=== PATIENT | female | born 1970 | race African-American/Black ===

== ENCOUNTER 2017-08-28 20:27 | Inpatient (IN) | payer BC ==
[2017-08-29] MEDS: HYDROmorphONE 0.5 MG/0.5 ML SYG IV (02:16)
[2017-08-29] MEDS: ONDANSETRON 4 MG INJ IV (02:16)
[2017-08-29 02:19] LABS: ADD MAN DIFF? NO
[2017-08-29 02:21] LABS: ABNORMAL IP MESSAGE 1; BASOPHIL # 0.1 10^3/ul (0.0-0.1); BASOPHILS % 0.5 % (0.0-2.0); EOSINOPHILS # 0.3 10^3/ul (0.0-0.5); EOSINOPHILS % 2.5 % (0.0-7.0); HEMATOCRIT 34.1 % (37.0-47.0); HEMOGLOBIN 10.2 g/dl (12.0-16.0); LYMPHOCYTES # 2.7 10^3/ul (0.8-2.9); LYMPHOCYTES % 27.3 % (15.0-51.0); MEAN CORPUSCULAR HEMOGLOBIN 22.1 pg (29.0-33.0); MEAN CORPUSCULAR HGB CONC 29.9 g/dl (32.0-37.0); MEAN CORPUSCULAR VOLUME 73.8 fl (82.0-101.0); MEAN PLATELET VOLUME 11.1 fl (7.4-10.4); MONOCYTE # 0.8 10^3/ul (0.3-0.9); MONOCYTES % 8.4 % (0.0-11.0); NEUTROPHILS % 60.9 % (39.0-77.0); PLATELET COUNT 373 10^3/UL (140-415); RED BLOOD COUNT 4.62 10^6/ul (4.20-5.40); RED CELL DISTRIBUTION WIDTH 25.7 % (11.5-14.5)
[2017-08-29 02:21] LABS: WHITE BLOOD COUNT 9.8 10^3/ul (4.8-10.8)
[2017-08-29 02:28] LABS: POSITIVE DIFF @See below
[2017-08-29 02:41] LABS: INR 0.94; PROTIME 12.7 Sec (11.9-14.9)
[2017-08-29 02:42] LABS: PARTIAL THROMBOPLASTIN TIME 31.2 Sec (25.0-35.0)
[2017-08-29 02:46] LABS: ALANINE AMINOTRANSFERASE 32 IU/L (13-69); ALBUMIN 4.1 g/dl (3.3-4.9); ALBUMIN/GLOBULIN RATIO 1.05; ALKALINE PHOSPHATASE 111 IU/L (42-121); ANION GAP 16 (8-16); ASPARTATE AMINO TRANSFERASE 29 IU/L (15-46); BILIRUBIN,INDIRECT 0.1 mg/dl (0-1.1); BILIRUBIN,TOTAL 0.1 mg/dl (0.2-1.3); BLOOD UREA NITROGEN 15 mg/dl (7-20); C-REACTIVE PROTEIN 1.3 mg/dl (0.0-0.9); CALCIUM 9.4 mg/dl (8.4-10.2); CARBON DIOXIDE 26 mmol/L (21-31); CHLORIDE 109 mmol/L (97-110); CREATININE 0.96 mg/dl (0.44-1.00); GLUCOSE 90 mg/dl (70-220); POTASSIUM 4.2 mmol/L (3.5-5.1); SODIUM 147 mmol/L (135-144)
[2017-08-29 03:22] LABS: URINE BLOOD (Dip) POC Trace-lysed (NEGATIVE); URINE GLUCOSE (Dip) POC Negative (NEGATIVE); URINE KETONES (Dip) POC Negative (NEGATIVE); URINE LEUKOCYTE EST (Dip) POC Negative (NEGATIVE); URINE NITRITE (Dip) POC Negative (NEGATIVE); URINE TOTAL PROTEIN POC Negative (NEGATIVE)
[2017-08-29 03:22] LABS: URINE PH (Dip) POC 5.5 (5.0-8.5)
[2017-08-29 03:55] LABS: ERYTHROCYTE SEDIMENTATION RATE 18 mm/Hr (0-20)
[2017-08-29] MEDS ORDERED: ACETAMINOPHEN 325 MG TAB PO (05:00)
[2017-08-29] MEDS ORDERED: ONDANSETRON 4 MG INJ IV (05:00)
[2017-08-29] MEDS: LISINOPRIL 20 MG TAB PO (09:08)
[2017-08-29] MEDS: FERROUS SULFATE (EC) 325 MG TAB PO ×2 (09:08→20:26)
[2017-08-29] MEDS: DOCUSATE SODIUM 100 MG CAP PO (09:08)
[2017-08-29] MEDS: morphine 2 MG INJ IV (23:19)
[2017-08-30] MEDS: DOCUSATE SODIUM 100 MG CAP PO (09:00)
[2017-08-30] MEDS: FERROUS SULFATE (EC) 325 MG TAB PO ×2 (09:00→20:43)
[2017-08-30] MEDS: LISINOPRIL 20 MG TAB PO ×2 (09:00→20:43)
[2017-08-30] MEDS ORDERED: LIDOCAINE 1% (MDV) 20 ML INJ (15:36)
[2017-08-30] MEDS: SOD CHLORIDE 0.9% 1,000 ML IV (18:49)
[2017-08-31] MEDS: DOCUSATE SODIUM 100 MG CAP PO (08:38)
[2017-08-31] MEDS: LISINOPRIL 20 MG TAB PO (08:38)
[2017-08-31] MEDS: FERROUS SULFATE (EC) 325 MG TAB PO ×2 (08:38→20:51)
[2017-08-31] MEDS: SOD CHLORIDE 0.9% 1,000 ML IV (14:30)
[2017-09-01] MEDS: morphine 2 MG INJ IV ×2 (00:36→20:42)
[2017-09-01 05:41] LABS: ADD MAN DIFF? NO
[2017-09-01 05:51] LABS: WHITE BLOOD COUNT 7.3 10^3/ul (4.8-10.8)
[2017-09-01 05:51] LABS: ABNORMAL IP MESSAGE 1; BASOPHIL # 0.1 10^3/ul (0.0-0.1); BASOPHILS % 0.7 % (0.0-2.0); EOSINOPHILS # 0.3 10^3/ul (0.0-0.5); EOSINOPHILS % 3.9 % (0.0-7.0); HEMATOCRIT 35.2 % (37.0-47.0); HEMOGLOBIN 10.5 g/dl (12.0-16.0); LYMPHOCYTES # 2.5 10^3/ul (0.8-2.9); LYMPHOCYTES % 34.8 % (15.0-51.0); MEAN CORPUSCULAR HEMOGLOBIN 21.9 pg (29.0-33.0); MEAN CORPUSCULAR HGB CONC 29.8 g/dl (32.0-37.0); MEAN CORPUSCULAR VOLUME 73.3 fl (82.0-101.0); MONOCYTE # 0.6 10^3/ul (0.3-0.9); MONOCYTES % 8.1 % (0.0-11.0); NEUTROPHIL # 3.8 10^3/ul (1.6-7.5); NEUTROPHILS % 52.2 % (39.0-77.0); PLATELET COUNT 333 10^3/UL (140-415); RED CELL DISTRIBUTION WIDTH 25.1 % (11.5-14.5)
[2017-09-01 06:07] LABS: POSITIVE DIFF @See below
[2017-09-01 06:14] LABS: ANION GAP 16 (8-16); BLOOD UREA NITROGEN 11 mg/dl (7-20); CALCIUM 9.1 mg/dl (8.4-10.2); CARBON DIOXIDE 27 mmol/L (21-31); CHLORIDE 108 mmol/L (97-110); CREATININE 0.71 mg/dl (0.44-1.00); GLUCOSE 96 mg/dl (70-220); POTASSIUM 4.2 mmol/L (3.5-5.1); SODIUM 147 mmol/L (135-144)
[2017-09-01] MEDS: DOCUSATE SODIUM 100 MG CAP PO (09:18)
[2017-09-01] MEDS: LISINOPRIL 20 MG TAB PO (09:18)
[2017-09-01] MEDS: FERROUS SULFATE (EC) 325 MG TAB PO ×2 (09:18→20:16)
[2017-09-01] MEDS: SOD CHLORIDE 0.9% 1,000 ML IV (12:49)
[2017-09-02 06:04] LABS: ANION GAP 12 (8-16); BLOOD UREA NITROGEN 12 mg/dl (7-20); CALCIUM 8.9 mg/dl (8.4-10.2); CARBON DIOXIDE 29 mmol/L (21-31); CHLORIDE 107 mmol/L (97-110); CREATININE 0.71 mg/dl (0.44-1.00); GLUCOSE 90 mg/dl (70-220); POTASSIUM 4.1 mmol/L (3.5-5.1); SODIUM 144 mmol/L (135-144)
[2017-09-02] MEDS: FERROUS SULFATE (EC) 325 MG TAB PO ×2 (08:35→21:08)
[2017-09-02] MEDS: LISINOPRIL 20 MG TAB PO (08:36)
[2017-09-02] MEDS: DOCUSATE SODIUM 100 MG CAP PO (08:36)
[2017-09-02] MEDS: SOD CHLORIDE 0.9% 1,000 ML IV (10:43)
[2017-09-03] MEDS: SOD CHLORIDE 0.9% 1,000 ML IV ×2 (03:30→11:03)
[2017-09-03 06:01] LABS: ADD MAN DIFF? NO
[2017-09-03 06:09] LABS: WHITE BLOOD COUNT 8.3 10^3/ul (4.8-10.8)
[2017-09-03 06:09] LABS: ABNORMAL IP MESSAGE 1; BASOPHIL # 0.1 10^3/ul (0.0-0.1); BASOPHILS % 0.8 % (0.0-2.0); EOSINOPHILS # 0.4 10^3/ul (0.0-0.5); EOSINOPHILS % 4.2 % (0.0-7.0); HEMATOCRIT 34.9 % (37.0-47.0); HEMOGLOBIN 10.5 g/dl (12.0-16.0); LYMPHOCYTES # 2.5 10^3/ul (0.8-2.9); LYMPHOCYTES % 30.5 % (15.0-51.0); MEAN CORPUSCULAR HEMOGLOBIN 22.3 pg (29.0-33.0); MEAN CORPUSCULAR HGB CONC 30.1 g/dl (32.0-37.0); MEAN CORPUSCULAR VOLUME 74.3 fl (82.0-101.0); MEAN PLATELET VOLUME 11.1 fl (7.4-10.4); MONOCYTE # 0.6 10^3/ul (0.3-0.9); MONOCYTES % 7.3 % (0.0-11.0); NEUTROPHIL # 4.7 10^3/ul (1.6-7.5); PLATELET COUNT 332 10^3/UL (140-415); RED CELL DISTRIBUTION WIDTH 25.1 % (11.5-14.5)
[2017-09-03 06:24] LABS: ANION GAP 17 (8-16); BLOOD UREA NITROGEN 9 mg/dl (7-20); CALCIUM 8.9 mg/dl (8.4-10.2); CARBON DIOXIDE 24 mmol/L (21-31); CHLORIDE 107 mmol/L (97-110); CREATININE 0.69 mg/dl (0.44-1.00); GLUCOSE 91 mg/dl (70-220); POTASSIUM 4.1 mmol/L (3.5-5.1); SODIUM 144 mmol/L (135-144)
[2017-09-03 06:29] LABS: POSITIVE DIFF @See below
[2017-09-03] MEDS: DOCUSATE SODIUM 100 MG CAP PO (08:55)
[2017-09-03] MEDS: FERROUS SULFATE (EC) 325 MG TAB PO ×2 (08:55→20:39)
[2017-09-03] MEDS: LISINOPRIL 20 MG TAB PO (08:56)
[2017-09-03 18:05] LABS: FREE T4 (FREE THYROXINE) 1.08 ng/dl (0.64-1.79)
[2017-09-04 06:07] LABS: ADD MAN DIFF? NO
[2017-09-04 06:14] LABS: ABNORMAL IP MESSAGE 1; BASOPHIL # 0.1 10^3/ul (0.0-0.1); BASOPHILS % 0.6 % (0.0-2.0); EOSINOPHILS # 0.3 10^3/ul (0.0-0.5); EOSINOPHILS % 2.6 % (0.0-7.0); HEMATOCRIT 34.6 % (37.0-47.0); HEMOGLOBIN 10.4 g/dl (12.0-16.0); LYMPHOCYTES % 20.6 % (15.0-51.0); MEAN CORPUSCULAR HEMOGLOBIN 22.1 pg (29.0-33.0); MEAN CORPUSCULAR HGB CONC 30.1 g/dl (32.0-37.0); MEAN CORPUSCULAR VOLUME 73.6 fl (82.0-101.0); MEAN PLATELET VOLUME 11.2 fl (7.4-10.4); MONOCYTE # 0.8 10^3/ul (0.3-0.9); MONOCYTES % 7.9 % (0.0-11.0); NEUTROPHIL # 6.5 10^3/ul (1.6-7.5); NEUTROPHILS % 68.1 % (39.0-77.0); PLATELET COUNT 343 10^3/UL (140-415); RED CELL DISTRIBUTION WIDTH 25.2 % (11.5-14.5)
[2017-09-04 06:14] LABS: WHITE BLOOD COUNT 9.5 10^3/ul (4.8-10.8)
[2017-09-04 06:29] LABS: POSITIVE DIFF @See below
[2017-09-04 07:07] LABS: ANION GAP 17 (8-16); BLOOD UREA NITROGEN 11 mg/dl (7-20); CALCIUM 9.3 mg/dl (8.4-10.2); CARBON DIOXIDE 26 mmol/L (21-31); CHLORIDE 107 mmol/L (97-110); GLUCOSE 95 mg/dl (70-220); SODIUM 146 mmol/L (135-144)
[2017-09-04] MEDS: DOCUSATE SODIUM 100 MG CAP PO (09:46)
[2017-09-04] MEDS: FERROUS SULFATE (EC) 325 MG TAB PO ×2 (09:46→20:17)
[2017-09-04] MEDS: LISINOPRIL 20 MG TAB PO (09:47)
[2017-09-04] MEDS: SOD CHLORIDE 0.9% 1,000 ML IV ×2 (12:56→19:30)
[2017-09-04] MEDS ORDERED: LORAZEPAM 2 MG INJ IV (17:00)
[2017-09-05 06:13] LABS: ADD MAN DIFF? NO
[2017-09-05 06:17] LABS: ABNORMAL IP MESSAGE 1; BASOPHIL # 0.1 10^3/ul (0.0-0.1); BASOPHILS % 0.6 % (0.0-2.0); EOSINOPHILS # 0.3 10^3/ul (0.0-0.5); EOSINOPHILS % 3.1 % (0.0-7.0); HEMATOCRIT 34.5 % (37.0-47.0); HEMOGLOBIN 10.3 g/dl (12.0-16.0); LYMPHOCYTES # 2.5 10^3/ul (0.8-2.9); LYMPHOCYTES % 25.3 % (15.0-51.0); MEAN CORPUSCULAR HEMOGLOBIN 22.4 pg (29.0-33.0); MEAN CORPUSCULAR HGB CONC 29.9 g/dl (32.0-37.0); MONOCYTE # 0.8 10^3/ul (0.3-0.9); MONOCYTES % 8.6 % (0.0-11.0); NEUTROPHILS % 62.2 % (39.0-77.0); PLATELET COUNT 325 10^3/UL (140-415); RED CELL DISTRIBUTION WIDTH 25.4 % (11.5-14.5)
[2017-09-05 06:17] LABS: WHITE BLOOD COUNT 9.7 10^3/ul (4.8-10.8)
[2017-09-05 06:35] LABS: ANION GAP 12 (8-16); BLOOD UREA NITROGEN 15 mg/dl (7-20); CARBON DIOXIDE 29 mmol/L (21-31); CHLORIDE 108 mmol/L (97-110); CREATININE 0.86 mg/dl (0.44-1.00); GLUCOSE 84 mg/dl (70-220); POTASSIUM 4.1 mmol/L (3.5-5.1); SODIUM 145 mmol/L (135-144)
[2017-09-05 06:57] LABS: POSITIVE DIFF @See below
[2017-09-05] MEDS: FERROUS SULFATE (EC) 325 MG TAB PO ×2 (09:53→20:20)
[2017-09-05] MEDS: LISINOPRIL 20 MG TAB PO ×2 (09:54→20:21)
[2017-09-05] MEDS: DOCUSATE SODIUM 100 MG CAP PO (09:54)
[2017-09-05] MEDS: SOD CHLORIDE 0.9% 1,000 ML IV (12:20)
[2017-09-06 06:42] LABS: ADD MAN DIFF? NO
[2017-09-06 06:46] LABS: ABNORMAL IP MESSAGE 1; BASOPHIL # 0.1 10^3/ul (0.0-0.1); BASOPHILS % 0.6 % (0.0-2.0); EOSINOPHILS # 0.2 10^3/ul (0.0-0.5); EOSINOPHILS % 2.6 % (0.0-7.0); HEMATOCRIT 32.7 % (37.0-47.0); LYMPHOCYTES # 2.1 10^3/ul (0.8-2.9); LYMPHOCYTES % 23.5 % (15.0-51.0); MEAN CORPUSCULAR HEMOGLOBIN 22.5 pg (29.0-33.0); MEAN CORPUSCULAR HGB CONC 30.6 g/dl (32.0-37.0); MEAN CORPUSCULAR VOLUME 73.5 fl (82.0-101.0); MONOCYTE # 0.6 10^3/ul (0.3-0.9); MONOCYTES % 7.3 % (0.0-11.0); NEUTROPHIL # 5.8 10^3/ul (1.6-7.5); NEUTROPHILS % 65.8 % (39.0-77.0); PLATELET COUNT 313 10^3/UL (140-415); RED BLOOD COUNT 4.45 10^6/ul (4.20-5.40); RED CELL DISTRIBUTION WIDTH 25.2 % (11.5-14.5)
[2017-09-06 06:46] LABS: WHITE BLOOD COUNT 8.8 10^3/ul (4.8-10.8)
[2017-09-06 07:00] LABS: POSITIVE DIFF @See below
[2017-09-06 07:13] LABS: ANION GAP 14 (8-16); BLOOD UREA NITROGEN 13 mg/dl (7-20); CALCIUM 9.3 mg/dl (8.4-10.2); CARBON DIOXIDE 26 mmol/L (21-31); CHLORIDE 107 mmol/L (97-110); CREATININE 0.73 mg/dl (0.44-1.00); GLUCOSE 89 mg/dl (70-220); POTASSIUM 4.1 mmol/L (3.5-5.1); SODIUM 143 mmol/L (135-144)
[2017-09-06] MEDS: LISINOPRIL 20 MG TAB PO ×2 (08:52→21:35)
[2017-09-06] MEDS: FERROUS SULFATE (EC) 325 MG TAB PO ×2 (08:52→21:34)
[2017-09-06] MEDS: DOCUSATE SODIUM 100 MG CAP PO (08:52)
[2017-09-06 09:31] LABS: MEAN PLATELET VOLUME 11.2 fl (7.4-10.4)
[2017-09-06] MEDS: SOD CHLORIDE 0.9% 1,000 ML IV ×2 (11:30→17:48)
[2017-09-07 05:31] LABS: ADD MAN DIFF? NO
[2017-09-07 05:34] LABS: ABNORMAL IP MESSAGE 1; BASOPHIL # 0.1 10^3/ul (0.0-0.1); BASOPHILS % 0.8 % (0.0-2.0); EOSINOPHILS # 0.3 10^3/ul (0.0-0.5); EOSINOPHILS % 3.5 % (0.0-7.0); HEMATOCRIT 33.6 % (37.0-47.0); HEMOGLOBIN 10.1 g/dl (12.0-16.0); LYMPHOCYTES # 2.2 10^3/ul (0.8-2.9); LYMPHOCYTES % 25.4 % (15.0-51.0); MEAN CORPUSCULAR HEMOGLOBIN 22.5 pg (29.0-33.0); MEAN CORPUSCULAR HGB CONC 30.1 g/dl (32.0-37.0); MEAN CORPUSCULAR VOLUME 74.8 fl (82.0-101.0); MONOCYTE # 0.7 10^3/ul (0.3-0.9); MONOCYTES % 7.8 % (0.0-11.0); NEUTROPHIL # 5.5 10^3/ul (1.6-7.5); PLATELET COUNT 300 10^3/UL (140-415); RED BLOOD COUNT 4.49 10^6/ul (4.20-5.40); RED CELL DISTRIBUTION WIDTH 24.8 % (11.5-14.5)
[2017-09-07 05:34] LABS: WHITE BLOOD COUNT 8.8 10^3/ul (4.8-10.8)
[2017-09-07 05:39] LABS: POSITIVE DIFF @See below
[2017-09-07 06:09] LABS: ANION GAP 14 (8-16); BLOOD UREA NITROGEN 13 mg/dl (7-20); CALCIUM 9.1 mg/dl (8.4-10.2); CARBON DIOXIDE 26 mmol/L (21-31); CHLORIDE 107 mmol/L (97-110); GLUCOSE 88 mg/dl (70-220); POTASSIUM 4.4 mmol/L (3.5-5.1); SODIUM 143 mmol/L (135-144)
[2017-09-07] MEDS: DOCUSATE SODIUM 100 MG CAP PO (09:19)
[2017-09-07] MEDS: FERROUS SULFATE (EC) 325 MG TAB PO ×2 (09:20→20:15)
[2017-09-07] MEDS: LISINOPRIL 20 MG TAB PO ×2 (09:21→20:16)
[2017-09-07] MEDS ORDERED: LIDOCAINE 1% (MDV) 10 ML INJ (11:36)
[2017-09-07 12:41] LABS: ANTI-DNA (DOUBLE STRANDED) <95 U/mL (< 301)
[2017-09-07] MEDS: morphine 2 MG INJ IV ×2 (14:41→20:42)
[2017-09-07 14:47] LABS: CSF CLARITY CLEAR; CSF COLOR COLORLESS
[2017-09-07 14:48] LABS: CSF RBC 0 /uL (0-0); CSF VOLUME 3.5 ml; CSF WBC 2 /cmm (0-10); CSF#TUBES REC'D 4
[2017-09-07 14:58] LABS: GLUCOSE,CSF 48 mg/dl (50-80)
[2017-09-07 14:58] LABS: TOTAL PROTEIN,CSF 21 mg/dl (12-60)
[2017-09-07 15:17] LABS: CSF CLARITY CLEAR; CSF VOLUME 3.5 ml
[2017-09-07 15:17] LABS: CSF COLOR COLORLESS
[2017-09-07 15:18] LABS: CSF#TUBE COUNT TUBE#4; CSF#TUBES REC'D 4
[2017-09-07 16:02] LABS: CSF RBC 0 /uL (0-0); CSF WBC 2 /cmm (0-10)
[2017-09-07 16:19] LABS: CSF#TUBE COUNT TUBE#1
[2017-09-07 19:25] LABS: ANA SCREEN NEGATIVE (NEGATIVE)
[2017-09-08 05:36] LABS: ADD MAN DIFF? NO
[2017-09-08 05:41] LABS: ABNORMAL IP MESSAGE 1; BASOPHIL # 0.1 10^3/ul (0.0-0.1); BASOPHILS % 0.7 % (0.0-2.0); EOSINOPHILS # 0.3 10^3/ul (0.0-0.5); EOSINOPHILS % 3.4 % (0.0-7.0); HEMATOCRIT 32.9 % (37.0-47.0); LYMPHOCYTES % 23.9 % (15.0-51.0); MEAN CORPUSCULAR HEMOGLOBIN 22.5 pg (29.0-33.0); MEAN CORPUSCULAR HGB CONC 30.4 g/dl (32.0-37.0); MEAN CORPUSCULAR VOLUME 74.1 fl (82.0-101.0); MONOCYTE # 0.8 10^3/ul (0.3-0.9); MONOCYTES % 8.8 % (0.0-11.0); NEUTROPHIL # 5.4 10^3/ul (1.6-7.5); NEUTROPHILS % 62.8 % (39.0-77.0); PLATELET COUNT 308 10^3/UL (140-415); RED BLOOD COUNT 4.44 10^6/ul (4.20-5.40); RED CELL DISTRIBUTION WIDTH 25.2 % (11.5-14.5)
[2017-09-08 05:41] LABS: WHITE BLOOD COUNT 8.5 10^3/ul (4.8-10.8)
[2017-09-08 06:23] LABS: ANION GAP 14 (8-16); BLOOD UREA NITROGEN 14 mg/dl (7-20); CALCIUM 8.8 mg/dl (8.4-10.2); CARBON DIOXIDE 29 mmol/L (21-31); CHLORIDE 105 mmol/L (97-110); GLUCOSE 97 mg/dl (70-220); POTASSIUM 4.3 mmol/L (3.5-5.1); SODIUM 144 mmol/L (135-144)
[2017-09-08 06:27] LABS: POSITIVE DIFF @See below
[2017-09-08] MEDS: LISINOPRIL 20 MG TAB PO ×2 (08:53→21:16)
[2017-09-08] MEDS: FERROUS SULFATE (EC) 325 MG TAB PO ×2 (08:53→21:16)
[2017-09-08] MEDS: DOCUSATE SODIUM 100 MG CAP PO (08:53)
[2017-09-09 05:57] LABS: ADD MAN DIFF? NO
[2017-09-09 05:59] LABS: WHITE BLOOD COUNT 8.2 10^3/ul (4.8-10.8)
[2017-09-09 05:59] LABS: ABNORMAL IP MESSAGE 1; BASOPHIL # 0.1 10^3/ul (0.0-0.1); BASOPHILS % 0.6 % (0.0-2.0); EOSINOPHILS # 0.3 10^3/ul (0.0-0.5); EOSINOPHILS % 3.3 % (0.0-7.0); HEMATOCRIT 35.8 % (37.0-47.0); HEMOGLOBIN 10.6 g/dl (12.0-16.0); LYMPHOCYTES # 2.2 10^3/ul (0.8-2.9); LYMPHOCYTES % 27.3 % (15.0-51.0); MEAN CORPUSCULAR HEMOGLOBIN 22.3 pg (29.0-33.0); MEAN CORPUSCULAR HGB CONC 29.6 g/dl (32.0-37.0); MEAN CORPUSCULAR VOLUME 75.4 fl (82.0-101.0); MEAN PLATELET VOLUME 10.9 fl (7.4-10.4); MONOCYTE # 0.5 10^3/ul (0.3-0.9); MONOCYTES % 6.6 % (0.0-11.0); NEUTROPHIL # 5.1 10^3/ul (1.6-7.5); NEUTROPHILS % 61.8 % (39.0-77.0); PLATELET COUNT 316 10^3/UL (140-415); RED BLOOD COUNT 4.75 10^6/ul (4.20-5.40); RED CELL DISTRIBUTION WIDTH 24.7 % (11.5-14.5)
[2017-09-09 06:01] LABS: POSITIVE DIFF @See below
[2017-09-09 06:15] LABS: ANION GAP 14 (8-16); BLOOD UREA NITROGEN 14 mg/dl (7-20); CALCIUM 9.2 mg/dl (8.4-10.2); CARBON DIOXIDE 29 mmol/L (21-31); CHLORIDE 104 mmol/L (97-110); GLUCOSE 96 mg/dl (70-220); POTASSIUM 4.4 mmol/L (3.5-5.1); SODIUM 143 mmol/L (135-144)
[2017-09-09] MEDS: DOCUSATE SODIUM 100 MG CAP PO (08:27)
[2017-09-09] MEDS: FERROUS SULFATE (EC) 325 MG TAB PO ×2 (08:27→20:23)
[2017-09-09] MEDS: LISINOPRIL 20 MG TAB PO ×2 (08:35→20:23)
[2017-09-09] MEDS: morphine LIQ (10 MG/5 ML) CUP PO (15:32)
[2017-09-10] MEDS: DOCUSATE SODIUM 100 MG CAP PO (08:11)
[2017-09-10] MEDS: FERROUS SULFATE (EC) 325 MG TAB PO ×2 (08:11→20:52)
[2017-09-10] MEDS: LISINOPRIL 20 MG TAB PO ×2 (08:11→20:56)
[2017-09-10] MEDS: morphine LIQ (10 MG/5 ML) CUP PO (20:54)
[2017-09-11 06:08] LABS: ADD MAN DIFF? NO
[2017-09-11 06:22] LABS: WHITE BLOOD COUNT 10.8 10^3/ul (4.8-10.8)
[2017-09-11 06:22] LABS: ABNORMAL IP MESSAGE 1; BASOPHIL # 0.1 10^3/ul (0.0-0.1); BASOPHILS % 0.7 % (0.0-2.0); EOSINOPHILS # 0.4 10^3/ul (0.0-0.5); EOSINOPHILS % 3.2 % (0.0-7.0); HEMATOCRIT 34.1 % (37.0-47.0); HEMOGLOBIN 10.3 g/dl (12.0-16.0); LYMPHOCYTES # 2.4 10^3/ul (0.8-2.9); LYMPHOCYTES % 22.6 % (15.0-51.0); MEAN CORPUSCULAR HEMOGLOBIN 22.5 pg (29.0-33.0); MEAN CORPUSCULAR HGB CONC 30.2 g/dl (32.0-37.0); MEAN CORPUSCULAR VOLUME 74.6 fl (82.0-101.0); MEAN PLATELET VOLUME 10.9 fl (7.4-10.4); MONOCYTE # 0.8 10^3/ul (0.3-0.9); MONOCYTES % 7.1 % (0.0-11.0); NEUTROPHIL # 7.1 10^3/ul (1.6-7.5); PLATELET COUNT 326 10^3/UL (140-415); RED BLOOD COUNT 4.57 10^6/ul (4.20-5.40); RED CELL DISTRIBUTION WIDTH 25.1 % (11.5-14.5)
[2017-09-11 06:26] LABS: POSITIVE DIFF @See below
[2017-09-11 06:45] LABS: ANION GAP 14 (8-16); BLOOD UREA NITROGEN 22 mg/dl (7-20); CALCIUM 8.9 mg/dl (8.4-10.2); CARBON DIOXIDE 27 mmol/L (21-31); CHLORIDE 105 mmol/L (97-110); CREATININE 1.07 mg/dl (0.44-1.00); GLUCOSE 102 mg/dl (70-220); POTASSIUM 4.1 mmol/L (3.5-5.1); SODIUM 142 mmol/L (135-144)
[2017-09-11] MEDS: LISINOPRIL 20 MG TAB PO (09:26)
[2017-09-11] MEDS: DOCUSATE SODIUM 100 MG CAP PO (09:26)
[2017-09-11] MEDS: FERROUS SULFATE (EC) 325 MG TAB PO (09:26)
[2017-09-11 12:18] LABS: MYOGLOBIN <27 mcg/L (< 67)
== END 2017-09-11 20:10 | disposition home or self-care (01) | DRG 123 ==
LOC: E/R 20:27 → MS2 09-09 06:10
PROC: 009U3ZX Drainage of Spinal Canal, Percutaneous Approach, Diagnostic (ICD-10-PCS; principal; 2017-09-07)
PROC: B01B1ZZ Fluoroscopy of Spinal Cord using Low Osmolar Contrast (ICD-10-PCS; 2017-09-07)
DX: H47.20 Unspecified optic atrophy (principal); Z68.41 Body mass index [BMI] 40.0-44.9, adult; E66.01 Morbid (severe) obesity due to excess calories; R42 Dizziness and giddiness; R51 Headache; I10 Essential (primary) hypertension
CPT/HCPCS: 36415; 70553; 72100; 72156; 72157; 80048; 80053; 81003; 81025; 82040; 82042; 82164; 82784; 82945; 83873; 83874; 83916; 84157; 84439; 84443; 85025; 85610; 85651; 85730; 86038; 86140; 86226; 86235; 86592; 87070; 87081; 89051; 96374; 96375; 97116; 97162; 97530; 99285-25

== ENCOUNTER 2018-12-11 20:17 | Emergency (ER) | payer SELFPAY, BC ==
[2018-12-11 22:13] LABS: ADD MAN DIFF? NO
[2018-12-11 22:15] LABS: WHITE BLOOD COUNT 10.6 10^3/ul (4.8-10.8)
[2018-12-11 22:15] LABS: BASOPHIL # 0.1 10^3/ul (0.0-0.1); BASOPHILS % 0.7 % (0.0-2.0); EOSINOPHILS # 0.2 10^3/ul (0.0-0.5); EOSINOPHILS % 1.8 % (0.0-7.0); HEMATOCRIT 34.4 % (37.0-47.0); HEMOGLOBIN 10.8 g/dl (12.0-16.0); LYMPHOCYTES # 2.1 10^3/ul (0.8-2.9); LYMPHOCYTES % 20.3 % (15.0-51.0); MEAN CORPUSCULAR HEMOGLOBIN 26.2 pg (29.0-33.0); MEAN CORPUSCULAR HGB CONC 31.4 g/dl (32.0-37.0); MEAN CORPUSCULAR VOLUME 83.3 fl (82.0-101.0); MEAN PLATELET VOLUME 11.1 fl (7.4-10.4); MONOCYTE # 0.8 10^3/ul (0.3-0.9); MONOCYTES % 7.7 % (0.0-11.0); NEUTROPHIL # 7.3 10^3/ul (1.6-7.5); PLATELET COUNT 301 10^3/UL (140-415); RED BLOOD COUNT 4.13 10^6/ul (4.20-5.40)
[2018-12-11] MEDS: morphine 4 MG/ML VIAL IV (22:15)
[2018-12-11 22:32] LABS: ALANINE AMINOTRANSFERASE 16 IU/L (13-69); ALBUMIN 3.8 g/dl (3.3-4.9); ALBUMIN/GLOBULIN RATIO 0.95; ALKALINE PHOSPHATASE 92 IU/L (42-121); ANION GAP 8 (5-13); ASPARTATE AMINO TRANSFERASE 16 IU/L (15-46); BILIRUBIN,INDIRECT 0.3 mg/dl (0-1.1); BILIRUBIN,TOTAL 0.3 mg/dl (0.2-1.3); BLOOD UREA NITROGEN 15 mg/dl (7-20); CALCIUM 8.7 mg/dl (8.4-10.2); CARBON DIOXIDE 26 mmol/L (21-31); CHLORIDE 108 mmol/L (97-110); CREATININE 0.94 mg/dl (0.44-1.00); Estimated GFR > 60 mL/min (>60); GLUCOSE 89 mg/dl (70-220); LIPASE 81 U/L (23-300); POTASSIUM 3.7 mmol/L (3.5-5.1); SODIUM 142 mmol/L (135-144); TOTAL PROTEIN 7.8 g/dl (6.1-8.1)
[2018-12-11 23:01] LABS: TROPONIN-I < 0.012 ng/ml (0.000-0.120)
[2018-12-11 23:55] LABS: ADD UMIC NO; UR ASCORBIC ACID NEGATIVE (NEGATIVE); UR BILIRUBIN (Dip) NEGATIVE (NEGATIVE); UR BLOOD (Dip) NEGATIVE (NEGATIVE); UR CLARITY SLIGHTLY CLOUDY (CLEAR); UR COLOR YELLOW (YELLOW); UR GLUCOSE (Dip) NEGATIVE (NEGATIVE); UR KETONES (Dip) NEGATIVE (NEGATIVE); UR LEUKOCYTE ESTERASE (Dip) NEGATIVE Leu/ul (NEGATIVE); UR NITRITE (Dip) NEGATIVE (NEGATIVE); UR RBC 3 /HPF (0-5); UR SPECIFIC GRAVITY (Dip) 1.016 (1.003-1.030); UR SQUAMOUS EPITHELIAL CELL FEW /HPF (FEW); UR TOTAL PROTEIN (Dip) NEGATIVE (NEGATIVE); UR UROBILINOGEN (Dip) NEGATIVE (NEGATIVE); UR WBC 2 /HPF (0-5)
[2018-12-11] MEDS: KETOROLAC 30 MG INJ IV (23:56)
== END 2018-12-12 00:38 | disposition home or self-care (01) ==
LOC: E/R 12-12 00:38
DX: R10.9 Unspecified abdominal pain (principal); I10 Essential (primary) hypertension; R40.2142 Coma scale, eyes open, spontaneous, at arrival to emergency department; R40.2362 Coma scale, best motor response, obeys commands, at arrival to emergency department; R40.2252 Coma scale, best verbal response, oriented, at arrival to emergency department; Z98.61 Coronary angioplasty status
CPT/HCPCS: 36415; 74176; 80053; 81001; 81003; 81025; 83690; 84484; 85025; 96374; 96375; 99285-25